=== PATIENT | male | born 1960 | race Caucasian/White ===

== ENCOUNTER 2022-01-14 12:36 | Inpatient (IN) | payer OTHER ==
[~2022-01-14] VITALS: Ht 182.9 cm; Wt 89.5 kg
[~2022-01-14 12:36] MED LIST: ANTI-DIARRHEA2 MG PO
[2022-01-15] MEDS ORDERED: AZITHROMYCIN500 MG PO (21:18)
[2022-01-15] MEDS ORDERED: CEFPODOXIME PR200 MG PO (21:19)
== END 2022-01-15 21:10 | disposition left against medical advice (07) | DRG 871 ==
LOC: ED 12:36 → CCU 20:13
PROVIDERS: ADMIT Internal Medicine; ATTEND Internal Medicine
PROC: 009U3ZX Drainage of Spinal Canal, Percutaneous Approach, Diagnostic (ICD-10-PCS; principal; 2022-01-14)
PROC: 3E03329 Introduction of Other Anti-infective into Peripheral Vein, Percutaneous Approach (ICD-10-PCS; 2022-01-14)
PROC: 5A1935Z Respiratory Ventilation, Less than 24 Consecutive Hours (ICD-10-PCS; 2022-01-14)
DX: A41.9 Sepsis, unspecified organism (principal); G93.41 Metabolic encephalopathy; N17.9 Acute kidney failure, unspecified; Z20.822 Contact with and (suspected) exposure to COVID-19; E11.65 Type 2 diabetes mellitus with hyperglycemia; I10 Essential (primary) hypertension; F17.200 Nicotine dependence, unspecified, uncomplicated; Z98.890 Other specified postprocedural states; Z90.49 Acquired absence of other specified parts of digestive tract; Z79.899 Other long term (current) drug therapy
CPT/HCPCS: 31720; 36415; 36600; 51702; 62270; 70450; 71045; 71046; 74177; 80048; 80053; 81001; 82803; 82945; 83036; 83605; 83735; 84157; 85025; 85610; 85730; 87502; 89051; 90715; 93306; 94002; 99285-25; A9270; C9803; J0295; J0696; J1815; J1885; J2250; J3010; J3370; J7030; J7060; J7121; Q9967; U0003

== ENCOUNTER 2023-04-12 09:57 | Day surgery (SDC) | payer OTHER ==
--- NOTE | 2023-04-06 14:09 | NUR ---
PER PTS H&P IT IS NOTED THAT HE TAKES BP MEDICATIONS, BUT AFTER GOING OVER MEDS AND HX PT ONLY TAKE A MULTI VIT DAILY. H&P IS INCORRECT PER PATIENT
[2023-04-06 14:18] VITALS: BP 133/79
[~2023-04-12] VITALS: Ht 182.9 cm; Wt 88.6 kg
--- NOTE | ~2023-04-12 | OR ---
[facility] [address], [place] [address] Draft DATE OF OPERATION: 04/12/2023 SURGEON: Miguel Krueger MD PREOPERATIVE DIAGNOSIS: Septal deformity. POSTOPERATIVE DIAGNOSIS: Septal deformity. PROCEDURE: Septoplasty. ANESTHESIA: General, LMA; RETREADER, Sreedhar PREOP HISTORY: Mr. Ireland is a 63-year-old male with a history of nasal trauma, multiple episodes causing external and internal deformities. 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 He is taken to the operating room for the above-mentioned procedures. PROCEDURE AND FINDINGS: After informed consent, the patient was taken to the operating room, placed in supine position, where general LMA anesthesia was induced. The patient and procedure were verified. The patient received preoperative intranasal oxymetazoline, intravenous Ancef. Headlight speculum exam of the nasal cavity showed a significant septal deformity, completely obstructive on the left side anteriorly, not much deformity posteriorly. A 1% lidocaine with epi was injected in the septal mucosa, left and right side anteriorly. The left henry-transfixation incision was then made and a submucoperichondrial pocket elevated on the left side. Incision was made through septal cartilage about a centimeter posterior to the caudal edge and the submucoperichondrial pocket elevated on the right. All deviated septal cartilage was then removed. The airway was improved, deformity corrected, minimal bleeding. Incision was closed with 5-0 interrupted chromic. Packing was placed, trimmed Merocel equal amount each side, one piece each side, tied anteriorly over a pad. The pharynx was suctioned clear of blood secretions. Hemostasis verified. The patient was then awakened, extubated, transported to recovery room in good condition. No complications. BLOOD LOSS: PATIENT NAME: BUSHRA IRELAND OPERATIVE REPORT DATE OF : 60 REPORT #: [id number] PHYSICIAN: MIGUEL KRUEGER MD PCP: DEENA CASAS PA-C REPORT IS CONFIDENTIAL AND NOT TO BE RELEASED WITHOUT AUTHORIZATION [facility] [address] [place] [address], [place] [address] Draft Minimal. SPECIMEN: No specimens. DRAINS: No drains. PACKING: One piece of Merocel in each nostril. Miguel Krueger MD /MODL /[id number] Copies: ~ PATIENT NAME: BUSHRA IRELAND OPERATIVE REPORT DATE OF : 60 REPORT #: [id number] PHYSICIAN: MIGUEL KRUEGER MD PCP: DEENA CASAS PA-C REPORT IS CONFIDENTIAL AND NOT TO BE RELEASED WITHOUT AUTHORIZATION
[~2023-04-12 09:57] MED LIST changes: +AZITHROMYCIN500 MG PO; +CEFPODOXIME PR200 MG PO; +MULTI VITAMIN1 EACH PO
[2023-04-12 10:07] VITALS: BP 145/80
--- NOTE | 2023-04-12 11:33 | NUR ---
04/12/23 1133 Rebeca Moreira 1118 PT TO PACU SLEEPING ORAL AIRWAY IN PLACE. BREATHING REGULAR AND UNLABORED. O2 ON 6L VIA MASK FOGGING NOTED IN MASK. MUSTACHE DRESSING IN PLACE, CLEAN AND DRY.
[2023-04-12 12:10] VITALS: BP 114/65
[2023-04-12 13:15] VITALS: BP 124/82
[2023-04-12] MEDS ORDERED: HYDROCODON-ACE1 EA10 PO (13:51)
[2023-04-12] MEDS ORDERED: CEPHALEXIN500 M1 PO (13:52)
--- NOTE | 2023-04-12 14:49 | NUR ---
1210: PATIENT BACK IN DAY SURGERY ROOM FROM PACU. DENIES PAIN. VS CHECKED. MOUSTACHE DRESSING IN PLACE IS CLEAN, DRY AND INTACT. IV SALINE LOCKED. ICE WATER PLACED AT BEDSIDE. GIVEN CRACKERS AND PUDDING. CALL LIGHT WITHIN REACH. 1250: LUNCH ORDERED. CHECKED PATIENT. PATIENT SLEEPING. CALL LIGHT WITHIN REACH. 1315: CURRENTLY EATING LUNCH. VS CHECKED. IV DC'D WNL. TIP INTACT. DRESSING APPLIED. 1345: PATIENT ASSISTED OOB. GAIT STEADY WALKING AROUND ROOM. PATIENT GETTING DRESSED. 1405: PATIENT REMOVED MOUSTACHE DRESSING. NO NEW DRAINAGE. DISCHARGE INSTRUCTIONS GIVEN TO PATIENT. PATIENT DISCHARGED TO HOME VIA WHEELCHAIR WITH SISTER.
== END 2023-04-12 14:05 | disposition home or self-care (01) ==
LOC: DS 09:57 → OPS 09:57 → DS 10:30 → OPS 12:30
PROVIDERS: ATTEND Otolaryngology
PROC: 09BM0ZZ Excision of Nasal Septum, Open Approach (ICD-10-PCS; principal; 2023-04-12 10:30)
DX: J34.2 Deviated nasal septum (principal)
CPT/HCPCS: 00160; A9270; J0131; J0690; J1100; J2250; J2371; J2405; J2704; J3010; J7121